=== PATIENT | male | born 1950 | race African-American/Black ===

== ENCOUNTER 2016-07-17 09:32 | Outpatient (CLI) | payer MEDICARE, BC | END 2016-07-17 09:33 | disposition home or self-care (01) | DX: R53.83 Other fatigue (principal); G47.61 Periodic limb movement disorder | CPT/HCPCS: 99213; G0463 ==

== ENCOUNTER 2016-09-22 11:21 | Outpatient (CLI) | payer MEDICARE, BC | END 2016-09-22 11:22 | disposition critical access hospital (66) | DX: R41.82 Altered mental status, unspecified (principal); M25.512 Pain in left shoulder | CPT/HCPCS: A0425; A0429 ==

== ENCOUNTER 2016-09-22 11:38 | Emergency (ER) | payer MEDICARE, BC | END 2016-09-22 18:52 | disposition home or self-care (01) | DX: S42.212A Unspecified displaced fracture of surgical neck of left humerus, initial encounter for closed fracture (principal); W06.XXXA Fall from bed, initial encounter; Y92.013 Bedroom of single-family (private) house as the place of occurrence of the external cause; I10 Essential (primary) hypertension; E78.00 Pure hypercholesterolemia, unspecified; E11.9 Type 2 diabetes mellitus without complications; G47.30 Sleep apnea, unspecified; I25.10 Atherosclerotic heart disease of native coronary artery without angina pectoris; Z95.1 Presence of aortocoronary bypass graft; K21.9 Gastro-esophageal reflux disease without esophagitis; M79.7 Fibromyalgia; Z79.82 Long term (current) use of aspirin ==

== ENCOUNTER 2016-10-03 22:05 | Outpatient (CLI) | payer MEDICARE, BC | END 2016-10-03 22:06 | disposition critical access hospital (66) | DX: R07.81 Pleurodynia (principal); M79.602 Pain in left arm; Z91.81 History of falling | CPT/HCPCS: A0425; A0429 ==

== ENCOUNTER 2016-10-03 22:20 | Emergency (ER) | payer MEDICARE, BC ==
--- NOTE | 2016-10-03 22:36 | ED Physician Documentation ---
PD HPI Fall - Stated complaint Stated Complaint: GLF - Chief complaint Chief Complaint: General - History obtained from History obtained from: Patient - History of Present Illness Mechanism of injury: Lost balance Fall distance: Standing position Timing - onset: Today (this afternoon) Injury(ies) location: Chest (right low chest wall) Pain level now: 6 Quality of pain: Pain Associated symptoms: No: LOC, Neck pain Symptoms improve with: Rest Worsens with: Movement, Palpation Recently seen: Emergency Dept - Additional information Additional information: recently evaluated in this ED as well as at another ED for fall and multiple injury sites, with xrays and CTs revealing LUE fractures (humerus, radius). Patient says he fell again earlier today, c/o excerbation of the pain he has been having in his left shoulder and elbow, and his chief complaint is pain right anterolateral lower ribs Review of Systems Cardiac: denies: Chest pain / pressure (chest wall (rib) pain, but not chest pain per se) Respiratory: denies: Dyspnea GI: reports: Reviewed and negative. denies: Abdominal Pain PD PAST MEDICAL HISTORY - Past Medical History Cardiovascular: Hypertension, High cholesterol Respiratory: Sleep apnea Endocrine/Autoimmune: Type 2 diabetes GI: GERD : Incontinence Psych: Depression, Anxiety Musculoskeletal: Fibromyalgia - Past Surgical History Past Surgical History: Yes Ortho: Carpal Tunnel surgery Cardiovascular: CABG - Present Medications Home Medications: Ambulatory Orders Medication Instructions Recorded Confirmed Acetaminophen/Cod 300/30 [Tylenol 1 tab PO QID PRN 02/08/14 06/27/15 #3] Aspirin [Tony Chewable] 81 mg PO DAILY 02/08/14 06/27/15 Folic Acid 1 mg PO DAILY 02/08/14 06/27/15 Methotrexate Sodium [Methotrexate] 4 mg PO DAILY 02/08/14 06/27/15 Tamsulosin [Flomax] 0.4 mg PO DAILY 02/08/14 06/27/15 Morphine Sulfate [Morphine Sulfate 15 mg PO [id number] 07/29/14 06/27/15 ER] Ondansetron Odt [Zofran] 4 mg TL Q6H PRN #10 tablet 12/18/14 06/27/15 Amoxicillin/Potassium Clav 1 each PO BID #14 tablet 06/27/15 [Augmentin 875-125 Tablet] Atorvastatin Calcium 80 mg PO DAILY 01/20/16 01/20/16 Bupropion HCl 100 mg PO BID 06/27/15 06/27/15 Lisinopril 10 mg PO DAILY 06/27/15 06/27/15 Methocarbamol [Robaxin] 500 mg PO Q6HR 06/27/15 06/27/15 Pantoprazole [Protonix] 40 mg PO DAILY 06/27/15 06/27/15 Trospium Chloride [Trospium 60 mg PO DAILY 06/27/15 06/27/15 Chloride ER] Venlafaxine HCl [Venlafaxine HCl 150 mg PO DAILY 06/27/15 06/27/15 ER] - Allergies Allergies/Adverse Reactions: Allergies Allergy/AdvReac Type Severity Reaction Status Date / Time amitriptyline HCl * Allergy Intermediate Cramps Verified 06/27/15 00:12 [From Elavil] hydrochlorothiazide Allergy Intermediate Cramps Verified 06/27/15 00:12 - Social History Does the pt smoke?: No Smoking Status: Never smoker Does the pt drink ETOH?: No Does the pt have substance abuse?: No - Immunizations Immunizations are current?: Yes - POLST Patient has POLST: No PD ED PE NORMAL - Vitals Vital signs reviewed: Yes - General General: Alert and oriented X 3, No acute distress, Well developed/nourished - Cardiac Cardiac: RRR, No murmur - Respiratory Respiratory: No respiratory distress, Clear bilaterally - Abdomen Abdomen: Soft, Non tender - Derm Derm: Normal color, Warm and dry - Extremities Extremities: No edema - Free text exam Free text exam: right lower anterolateral chest wall pain to palpation without crepitus PD ED PE EXPANDED - Extremities Extremities: Other (LUE sling in place) Results - Vitals Vitals: Vital Signs - 24 hr 10/03/16 10/04/16 10/04/16 22:23 01:07 01:49 Temperature 36.3 C L Heart Rate 68 71 76 Respiratory 16 19 18 Rate Blood Pressure 199/101 H 198/110 H 184/98 H O2 Saturation 97 98 98 Oxygen O2 Source [Without Activity] Room air O2 Source Room air - Rads (name of study) chest with right ribs xrays Radiology: Prelim report reviewed, See rad report PD MEDICAL DECISION MAKING - ED course Complexity details: reviewed old records, reviewed results, re-evaluated patient , considered differential, d/w patient Departure - Departure Disposition: Home, Self Care Clinical Impression: Fall Qualifiers: Encounter type: initial encounter Qualified Code(s): W19.XXXA - Unspecified fall, initial encounter Chest wall contusion Qualifiers: Encounter type: initial encounter Laterality: right Qualified Code(s): S20.211A - Contusion of right front wall of thorax, initial encounter Condition: Good Instructions: ED Contusion Rib Follow-Up: Jairo Blandon MD [Primary Care Provider] - Discharge Date/Time: 10/04/16 01:49
[2016-10-03] MEDS ORDERED: oxyCODONE 5 MG TABLET PO STA (23:04)
[2016-10-03] MEDS ORDERED: oxyCODONE 5 MG TABLET ONE (23:07)
--- NOTE | 2016-10-04 00:33 | XRAY Preliminary Report ---
Exam: XR Ribs w/PA Chest RT IMPRESSION: Normal rib radiography. [facility] SITE ID: [id number]
--- NOTE | 2016-10-04 00:35 | XRAY Report ---
EXAM: RIGHT RIB RADIOGRAPHY EXAM DATE: 10/03/2016 11:17 PM. CLINICAL HISTORY: Fall, right chest wall pain. COMPARISON: None. TECHNIQUE: 2 views. FINDINGS: Bones: Normal. No fracture or bone lesion. Lungs: No focal opacities evident. No pneumothorax or pleural effusions. Mediastinum: Heart and cardiomediastinal contours are unremarkable. Other: Status post median sternotomy. IMPRESSION: Normal rib radiography. [facility] Referring Provider Line: [phone] SITE ID: [id number]
[2016-10-04 01:51] VITALS: BP 184/98
== END 2016-10-04 01:49 | disposition home or self-care (01) ==
LOC: EDUNIT# → SUPCPDRO 22:20 → ED 22:20
DX: S20.211A Contusion of right front wall of thorax, initial encounter (principal); W01.0XXA Fall on same level from slipping, tripping and stumbling without subsequent striking against object, initial encounter; I10 Essential (primary) hypertension; E78.00 Pure hypercholesterolemia, unspecified; G47.30 Sleep apnea, unspecified; E11.9 Type 2 diabetes mellitus without complications; K21.9 Gastro-esophageal reflux disease without esophagitis; M79.7 Fibromyalgia; Z79.82 Long term (current) use of aspirin
CPT/HCPCS: 99283

== ENCOUNTER 2016-10-08 21:52 | Outpatient (CLI) | payer MEDICARE, BC | END 2016-10-08 21:53 | disposition critical access hospital (66) | DX: R41.82 Altered mental status, unspecified (principal); R03.0 Elevated blood-pressure reading, without diagnosis of hypertension | CPT/HCPCS: A0425; A0429 ==

== ENCOUNTER 2016-10-08 22:06 | Emergency (ER) | payer MEDICARE, BC ==
[2016-10-08] MEDS ORDERED: SODIUM CHLORIDE 0.9% 1,000 ML IV ONE (22:12)
[2016-10-08] MEDS ORDERED: levoFLOXacin 250 MG TABLET PO STA (23:43)
[2016-10-08] MEDS ORDERED: levoFLOXacin 250 MG TABLET PO ONE (23:44)
== END 2016-10-09 01:13 | disposition home or self-care (01) ==
DX: N39.0 Urinary tract infection, site not specified (principal); N40.0 Benign prostatic hyperplasia without lower urinary tract symptoms; I10 Essential (primary) hypertension; E78.00 Pure hypercholesterolemia, unspecified; G47.30 Sleep apnea, unspecified; E11.9 Type 2 diabetes mellitus without complications; K21.9 Gastro-esophageal reflux disease without esophagitis; M79.7 Fibromyalgia; Z79.82 Long term (current) use of aspirin
CPT/HCPCS: 80053; 81001; 83690; 83735; 83880; 84100; 85025; 87086; 99284; A9270

== ENCOUNTER 2016-10-09 00:58 | Outpatient (CLI) | payer MEDICARE, BC | END 2016-10-09 00:59 | disposition home or self-care (01) | DX: R53.1 Weakness (principal) | CPT/HCPCS: A0425; A0428 ==

== ENCOUNTER 2016-11-01 12:05 | Outpatient (CLI) | payer MEDICARE, BC | END 2016-11-01 12:06 | disposition critical access hospital (66) | LOC: EMS 12:05 | PROVIDERS: ATTEND Surgery | DX: R11.2 Nausea with vomiting, unspecified (principal); K59.00 Constipation, unspecified | CPT/HCPCS: A0425; A0427 ==

== ENCOUNTER 2016-11-01 12:23 | Inpatient (IN) | payer MEDICARE, BC ==
[2016-11-01] MEDS ORDERED: SODIUM CHLORIDE 0.9% 1,000 ML IV ONE ×2 (13:35→14:13)
[2016-11-01] MEDS ORDERED: SODIUM CHLORIDE FLUSH 0.9% 10 ML SYRINGE IVP PRN (17:52)
[2016-11-01] MEDS: SODIUM CHLORIDE 0.9% 1,000 ML IV SCH (19:05)
[2016-11-01] MEDS: PANTOPRAZOLE 40 MG TABLET PO SCH (19:06)
[2016-11-01] MEDS ORDERED: hydrALAZINE 10 MG TABLET PO SCH ×2 (19:20→21:00)
[2016-11-01] MEDS: SODIUM CHLORIDE FLUSH 0.9% 10 ML SYRINGE IVP SCH (20:17)
[2016-11-01] MEDS: POLYETHYLENE GLYCOL 3350 17 GM PACKET PO SCH (20:21)
[2016-11-01] MEDS: TAMSULOSIN 0.4 MG CAPSULE PO SCH (20:22)
[2016-11-01] MEDS: ONDANSETRON 4 MG/2 ML VIAL IVP PRN (21:36)
[2016-11-01] MEDS: oxyCODONE 5 MG TABLET PO PRN (23:47)
[2016-11-02] MEDS: hydrALAZINE 25 MG TABLET PO SCH ×5 (00:27→20:40)
[2016-11-02] MEDS: ACETAMINOPHEN 325 MG TABLET PO PRN ×2 (02:33→15:39)
[2016-11-02] MEDS: SODIUM CHLORIDE 0.9% 1,000 ML IV SCH ×2 (04:20→16:03)
[2016-11-02] MEDS: SODIUM CHLORIDE FLUSH 0.9% 10 ML SYRINGE IVP SCH ×3 (06:08→20:36)
[2016-11-02] MEDS: oxyCODONE 5 MG TABLET PO PRN (06:09)
[2016-11-02] MEDS: PANTOPRAZOLE 40 MG TABLET PO SCH (06:09)
[2016-11-02] MEDS: POTASSIUM CHLORIDE 10 MEQ CAPSULE PO SCH ×4 (08:37→20:40)
[2016-11-02] MEDS: POLYETHYLENE GLYCOL 3350 17 GM PACKET PO SCH (08:37)
[2016-11-02] MEDS: VENLAFAXINE ER 75 MG CAPSULE PO SCH (08:37)
[2016-11-02] MEDS: FOLIC ACID 1 MG TABLET PO SCH (08:37)
[2016-11-02] MEDS: DOCUSATE SODIUM 250 MG CAPSULE PO SCH (08:38)
[2016-11-02] MEDS: SENNA 8.6 MG TABLET PO SCH (08:38)
[2016-11-02] MEDS ORDERED: POLYETHYLENE GLYCOL 3350 17 GM PACKET PO SCH (09:00)
[2016-11-02] MEDS: TAMSULOSIN 0.4 MG CAPSULE PO SCH (20:39)
[2016-11-02] MEDS: ONDANSETRON 4 MG/2 ML VIAL IVP PRN (22:54)
[2016-11-03] MEDS: amLODIPine 5 MG TABLET PO SCH ×2 (01:23→08:31)
[2016-11-03] MEDS: ACETAMINOPHEN 325 MG TABLET PO PRN ×2 (01:23→06:52)
[2016-11-03] MEDS: SODIUM CHLORIDE 0.9% 1,000 ML IV SCH ×2 (04:40→21:38)
[2016-11-03] MEDS: PANTOPRAZOLE 40 MG TABLET PO SCH (06:52)
[2016-11-03] MEDS: SODIUM CHLORIDE FLUSH 0.9% 10 ML SYRINGE IVP SCH ×3 (06:57→20:48)
[2016-11-03] MEDS: POTASSIUM CHLORIDE 10 MEQ CAPSULE PO SCH ×4 (08:30→20:47)
[2016-11-03] MEDS: POLYETHYLENE GLYCOL 3350 17 GM PACKET PO SCH (08:30)
[2016-11-03] MEDS: FOLIC ACID 1 MG TABLET PO SCH (08:31)
[2016-11-03] MEDS: SENNA 8.6 MG TABLET PO SCH (08:31)
[2016-11-03] MEDS: hydrALAZINE 25 MG TABLET PO SCH ×4 (08:31→20:47)
[2016-11-03] MEDS: VENLAFAXINE ER 75 MG CAPSULE PO SCH (08:31)
[2016-11-03] MEDS: DOCUSATE SODIUM 250 MG CAPSULE PO SCH (08:31)
[2016-11-03] MEDS: TAMSULOSIN 0.4 MG CAPSULE PO SCH (20:47)
[2016-11-03] MEDS: ONDANSETRON 4 MG/2 ML VIAL IVP PRN (22:22)
[2016-11-03] MEDS: oxyCODONE 5 MG TABLET PO PRN (23:39)
[2016-11-04] MEDS: SODIUM CHLORIDE FLUSH 0.9% 10 ML SYRINGE IVP SCH ×2 (05:54→14:33)
[2016-11-04] MEDS: PANTOPRAZOLE 40 MG TABLET PO SCH (06:16)
[2016-11-04] MEDS: SODIUM CHLORIDE 0.9% 1,000 ML IV SCH (09:05)
[2016-11-04] MEDS: SENNA 8.6 MG TABLET PO SCH (09:06)
[2016-11-04] MEDS: DOCUSATE SODIUM 250 MG CAPSULE PO SCH (09:06)
[2016-11-04] MEDS: amLODIPine 5 MG TABLET PO SCH (09:06)
[2016-11-04] MEDS: POTASSIUM CHLORIDE 10 MEQ CAPSULE PO SCH ×2 (09:06→14:26)
[2016-11-04] MEDS: VENLAFAXINE ER 75 MG CAPSULE PO SCH (09:06)
[2016-11-04] MEDS: hydrALAZINE 25 MG TABLET PO SCH ×2 (09:06→13:08)
[2016-11-04] MEDS: FOLIC ACID 1 MG TABLET PO SCH (09:06)
[2016-11-04] MEDS: POLYETHYLENE GLYCOL 3350 17 GM PACKET PO SCH (09:07)
[2016-11-04] MEDS: oxyCODONE 5 MG TABLET PO PRN (16:21)
== END 2016-11-04 16:25 | disposition home or self-care (01) | DRG 684 ==
DX: N17.9 Acute kidney failure, unspecified (principal); N13.30 Unspecified hydronephrosis; G47.30 Sleep apnea, unspecified; C61 Malignant neoplasm of prostate; I10 Essential (primary) hypertension; Z91.14 Patient's other noncompliance with medication regimen; E87.6 Hypokalemia; R33.8 Other retention of urine; R63.0 Anorexia; Z68.28 Body mass index [BMI] 28.0-28.9, adult; E11.9 Type 2 diabetes mellitus without complications; K21.9 Gastro-esophageal reflux disease without esophagitis; R74.8 Abnormal levels of other serum enzymes; I25.10 Atherosclerotic heart disease of native coronary artery without angina pectoris; R32 Unspecified urinary incontinence; M79.7 Fibromyalgia; F41.9 Anxiety disorder, unspecified; F32.9 Major depressive disorder, single episode, unspecified; Z95.1 Presence of aortocoronary bypass graft; Z79.82 Long term (current) use of aspirin; Z79.899 Other long term (current) drug therapy

== ENCOUNTER 2016-11-18 11:16 | Outpatient (CLI) | payer MEDICARE, BC | END 2016-11-18 11:17 | disposition short-term general hospital (02) | LOC: EMS 11:16 | PROVIDERS: ATTEND Surgery | DX: K59.00 Constipation, unspecified (principal) | CPT/HCPCS: A0425; A0429; A0888 ==

== ENCOUNTER 2016-12-05 01:53 | Outpatient (CLI) | payer MEDICARE, BC | END 2016-12-05 01:54 | disposition critical access hospital (66) | LOC: EMS 01:53 | PROVIDERS: ATTEND Surgery | DX: R39.89 Other symptoms and signs involving the genitourinary system (principal) | CPT/HCPCS: A0425; A0429 ==

== ENCOUNTER 2016-12-05 02:12 | Emergency (ER) | payer MEDICARE, BC ==
--- NOTE | 2016-12-05 02:21 | ED Physician Documentation ---
PD HPI MALE - Stated complaint Stated Complaint: URINARY RETENTION - Chief complaint Chief Complaint: Abd Pain - History obtained from History obtained from: Patient, EMS - History of Present Illness Timing - onset: Today Timing - duration: Hours (6) Timing - details: Gradual onset Pain level max: 0 Pain level now: 0 Associated symptoms: Unable to urinate. No: Dysuria, Urinary frequency, Hematuria, Discharge, Genital sore / lesion, Testiclar pain, Scrotal swelling, Abdominal pain PD HPI MALE CONTRIB FACTORS: Indwelling catheter (catheter removed at 6pm and hasn't been able to urinate since that time. Sent here to have his cevallos replaced. Has prostate CA.) Recently seen: Not recently seen Review of Systems Constitutional: denies: Fever, Chills Respiratory: denies: Cough GI: denies: Abdominal Pain, Nausea, Vomiting, Diarrhea Musculoskeletal: denies: Neck pain, Back pain Neurologic: denies: Headache PD PAST MEDICAL HISTORY - Past Medical History Cardiovascular: Hypertension Respiratory: Sleep apnea Neuro: None Endocrine/Autoimmune: Type 2 diabetes GI: GERD : Incontinence HEENT: Chronic vision loss Psych: Depression, Anxiety Musculoskeletal: Fibromyalgia Derm: None - Past Surgical History Past Surgical History: Yes Ortho: Carpal Tunnel surgery Cardiovascular: CABG - Present Medications Home Medications: Ambulatory Orders Medication Instructions Recorded Confirmed Aspirin [Tony Chewable Aspirin] 81 mg PO DAILY 02/08/14 12/05/16 Folic Acid 1 mg PO DAILY 02/08/14 12/05/16 Methotrexate Sodium [Methotrexate] 10 mg PO .WEEKLY 02/08/14 12/05/16 Tamsulosin [Flomax] 0.8 mg PO QPM 02/08/14 12/05/16 Atorvastatin Calcium 80 mg PO QPM 06/27/15 12/05/16 Bupropion HCl 100 mg PO BID 06/27/15 12/05/16 Lisinopril 10 mg PO DAILY 06/27/15 12/05/16 Methocarbamol [Robaxin] 500 mg PO Q6HR PRN 06/27/15 12/05/16 Pantoprazole [Protonix] 40 mg PO QDAC 06/27/15 12/05/16 Trospium Chloride [Trospium 60 mg PO DAILY 06/27/15 12/05/16 Chloride ER] Venlafaxine HCl [Venlafaxine HCl 150 mg PO DAILY 06/27/15 12/05/16 ER] Ondansetron HCl [Zofran] 4 mg PO Q6H PRN 11/01/16 12/05/16 Venlafaxine HCl [Venlafaxine HCl 75 mg PO DAILY 11/01/16 12/05/16 ER] Ciprofloxacin [Cipro] 250 mg PO Q12H #30 tablet 11/04/16 12/05/16 amLODIPine [Norvasc] 5 mg PO DAILY #30 tablet 11/04/16 12/05/16 hydrALAZINE [Apresoline] 25 mg PO TID #90 tablet 11/04/16 12/05/16 - Allergies Allergies/Adverse Reactions: Allergies Allergy/AdvReac Type Severity Reaction Status Date / Time amitriptyline HCl * Allergy Intermediate Cramps Verified 10/08/16 22:13 [From Elavil] hydrochlorothiazide Allergy Intermediate Cramps Verified 10/08/16 22:13 - Social History Does the pt smoke?: No Smoking Status: Never smoker Does the pt drink ETOH?: No Does the pt have substance abuse?: No - Immunizations Immunizations are current?: Yes - POLST Patient has POLST: No PD ED PE NORMAL - Vitals Vital signs reviewed: Yes - General General: Alert and oriented X 3, No acute distress - HEENT HEENT: Moist mucous membranes - Neck Neck: Supple, no meningeal sign - Cardiac Cardiac: RRR - Respiratory Respiratory: No respiratory distress, Clear bilaterally - Abdomen Abdomen: Soft, Non tender, Non distended - Derm Derm: Warm and dry - Neuro Neuro: Alert and oriented X 3 - Psych Psych: Normal mood, Normal affect Results - Vitals Vitals: Vital Signs - 24 hr 12/05/16 12/05/16 02:17 02:57 Temperature 36.7 C Heart Rate 75 71 Respiratory 17 18 Rate Blood Pressure 114/67 116/69 O2 Saturation 100 100 Oxygen O2 Source [Without Activity] Room air O2 Source Room air PD MEDICAL DECISION MAKING - ED course Complexity details: considered differential, d/w patient ED course: Patient sent to the emergency department to have his catheter replaced. The Cevallos catheter was inserted, bladder drained and catheter left in place. We will have him follow-up with his doctor. Patient counseled regarding signs and symptoms for which I believe and urgent re-evaluation would be necessary. Patient with good understanding of and agreement to plan and is comfortable going home at this time This document was made in part using voice recognition software. While efforts are made to proofread this document, sound alike and grammatical errors may occur. Departure - Departure Disposition: 01 Home, Self Care Clinical Impression: Urinary retention Condition: Good Instructions: ED Catheter Care Cevallos Follow-Up: your,doctor in 3 days [Other] Comments: Return if you worsen. Discharge Date/Time: 12/05/16 02:58
[2016-12-05 02:58] VITALS: BP 116/69
== END 2016-12-05 02:58 | disposition home or self-care (01) ==
LOC: EDUNIT# → ED 02:12
DX: R33.9 Retention of urine, unspecified (principal); I10 Essential (primary) hypertension; E11.9 Type 2 diabetes mellitus without complications; G47.30 Sleep apnea, unspecified; Z79.82 Long term (current) use of aspirin
CPT/HCPCS: 51702; 99283

== ENCOUNTER 2016-12-25 11:47 | Outpatient (CLI) | payer MEDICARE, BC | END 2016-12-25 11:48 | disposition critical access hospital (66) | LOC: EMS 11:47 | PROVIDERS: ATTEND Surgery | DX: R07.9 Chest pain, unspecified (principal) | CPT/HCPCS: A0425; A0429 ==

== ENCOUNTER 2016-12-25 12:01 | Emergency (ER) | payer MEDICARE, BC ==
[2016-12-25] MEDS ORDERED: MORPHINE 2 MG/ML SYRINGE IVP STA (12:17)
--- NOTE | 2016-12-25 12:21 | ED Physician Documentation ---
History of Present Illness - Stated complaint Stated Complaint: chest pain - Additonal information Additional information: hx from pt BIBA for CP X 2 hr L sided rad to l arm as 02/15now 12/15 after asa and nitro paste hx same freq but this episode lasted longer than normal has seen PMD for same and states dx chest wall pain hx CABG thinks his last stress test was 6 m ago and was fine also has nausea on a daily basis in the AM no dyspnea no fever no cough no leg swelling Review of Systems Constitutional: denies: Fever, Chills Throat: denies: Sore throat Cardiac: reports: Chest pain / pressure Respiratory: denies: Dyspnea GI: reports: Nausea. denies: Abdominal Pain Musculoskeletal: denies: Extremity pain Neurologic: denies: Generalized weakness Endocrine: denies: Easy bruising / bleeding Immunocompromised: denies: Immunocompromised PD PAST MEDICAL HISTORY - Present Medications Home Medications: Ambulatory Orders Medication Instructions Recorded Confirmed Aspirin [Tony Chewable Aspirin] 81 mg PO DAILY 02/08/14 12/05/16 Folic Acid 1 mg PO DAILY 02/08/14 12/05/16 Methotrexate Sodium [Methotrexate] 10 mg PO .WEEKLY 02/08/14 12/05/16 Tamsulosin [Flomax] 0.8 mg PO QPM 02/08/14 12/05/16 Atorvastatin Calcium 80 mg PO QPM 06/27/15 12/05/16 Bupropion HCl 100 mg PO BID 06/27/15 12/05/16 Lisinopril 10 mg PO DAILY 06/27/15 12/05/16 Methocarbamol [Robaxin] 500 mg PO Q6HR PRN 06/27/15 12/05/16 Pantoprazole [Protonix] 40 mg PO QDAC 06/27/15 12/05/16 Trospium Chloride [Trospium 60 mg PO DAILY 06/27/15 12/05/16 Chloride ER] Venlafaxine HCl [Venlafaxine HCl 150 mg PO DAILY 06/27/15 12/05/16 ER] Ondansetron HCl [Zofran] 4 mg PO Q6H PRN 11/01/16 12/05/16 Venlafaxine HCl [Venlafaxine HCl 75 mg PO DAILY 11/01/16 12/05/16 ER] Ciprofloxacin [Cipro] 250 mg PO Q12H #30 tablet 11/04/16 12/05/16 amLODIPine [Norvasc] 5 mg PO DAILY #30 tablet 11/04/16 12/05/16 hydrALAZINE [Apresoline] 25 mg PO TID #90 tablet 11/04/16 12/05/16 - Allergies Allergies/Adverse Reactions: Allergies Allergy/AdvReac Type Severity Reaction Status Date / Time amitriptyline HCl * Allergy Intermediate Cramps Verified 10/08/16 22:13 [From Elavil] hydrochlorothiazide Allergy Intermediate Cramps Verified 10/08/16 22:13 PD ED PE NORMAL - Vitals Vital signs reviewed: Yes - General General: Alert and oriented X 3 - HEENT HEENT: PERRL - Neck Neck: Supple, no meningeal sign - Cardiac Cardiac: RRR, Other (some TTP left chest, keeps rubbing it) - Respiratory Respiratory: No respiratory distress, Clear bilaterally - Abdomen Abdomen: Soft, Non tender - Derm Derm: Normal color - Extremities Extremities: No deformity, No edema, Other (urine leg bag) - Neuro Neuro: Alert and oriented X 3 Results - Vitals Vitals: Vital Signs - 24 hr 12/25/16 12/25/16 12/25/16 12:05 13:23 13:53 Temperature 36.5 C 36.8 C Heart Rate 81 77 78 Respiratory 14 19 18 Rate Blood Pressure 137/92 H 104/90 H 138/82 H O2 Saturation 97 98 98 12/25/16 15:08 Temperature Heart Rate 62 Respiratory 18 Rate Blood Pressure 126/70 O2 Saturation 93 Oxygen O2 Source [] Room air O2 Source Room air - EKG (time done) 1212 Rate: Rate (enter#) (74) Rhythm: NSR [place]: Normal Intervals: Normal [place] QRS: Normal Ischemia: Non specific changes - Labs Labs: Laboratory Tests 12/25/16 12/25/16 12/25/16 12:45 12:45 12:45 WBC 5.4 RBC 3.72 L Hgb 9.8 L Hct 30.3 L MCV 81.4 MCH 26.3 L MCHC 32.3 RDW 17.5 H Plt Count 267 MPV 7.3 L Neut # 3.7 Lymph # 1.0 L [place] # 0.5 Eos # 0.2 Baso # 0.1 Absolute Nucleated RBC 0.00 Nucleated RBCs 0.0 Sodium 138 Potassium 3.8 Chloride 103 Carbon Dioxide 29 Anion Gap 6.0 BUN 17 Creatinine 1.4 H Estimated GFR (MDRD) 61 L Glucose 73 Calcium 9.5 Total Bilirubin 0.4 AST 17 ALT 19 Alkaline Phosphatase 115 Troponin I < 0.04 Total Protein 7.2 Albumin 3.7 Globulin 3.5 Albumin/Globulin Ratio 1.1 Lipase 20 L 12/25/16 15:50 WBC RBC Hgb Hct MCV MCH MCHC RDW Plt Count MPV Neut # Lymph # [place] # Eos # Baso # Absolute Nucleated RBC Nucleated RBCs Sodium Potassium Chloride Carbon Dioxide Anion Gap BUN Creatinine Estimated GFR (MDRD) Glucose Calcium Total Bilirubin AST ALT Alkaline Phosphatase Troponin I < 0.04 Total Protein Albumin Globulin Albumin/Globulin Ratio Lipase - Rads (name of study) CXR Radiology: See rad report (NACPD s/p CABG, abn cardiac sillhouette is unchanged , aortic knowb sharp and clear) PD MEDICAL DECISION MAKING - ED course ED course: pt states anemia is not new - he thinks it is due to iron def but also says it has not been worked up Departure - Departure Disposition: Home, Self Care Clinical Impression: Chest pain Qualifiers: Chest pain type: unspecified Qualified Code(s): R07.9 - Chest pain, unspecified Anemia Qualifiers: Anemia type: unspecified type Qualified Code(s): D64.9 - Anemia, unspecified Instructions: ED Chest Pain Atypical Unkn Cause Follow-Up: Jairo Blandon MD [Primary Care Provider] - Comments: Your EKG and blood tests for your heart were fine - it does not seem this episode of chest pain was due to a heart attack Also your xray does not suggest an aortic aneurysm or tear And your exam does not suggest a blood clot in your lung I am not sure what did cause the pain - your seem tender to palpate the chest so perhaps it is muckuloskeletal pain Given the reassuring cardiac work up i think it is safe for you to go home and follow up with your PMD for a recheck tomorrow or Thursday Also I noticed today that you are anemic - it is not severe and you do not need a transfusion but it needs further work up which you PMD can do for you. We have given you some stoool sample cards to see if you are losing blood internally - please use the wooden sticks to place a small amount of stool on the sample area of the card - three cards three different BMs - and take the cards in the plastic bag to your follow up appointment Also please have your PMD recheck your blood pressure - it was high today
[2016-12-25] MEDS ORDERED: MORPHINE 2 MG/ML SYRINGE ONE (12:25)
--- NOTE | 2016-12-25 13:02 | XRAY Preliminary Report ---
Exam: XR Chest 1 View IMPRESSION: 1. No acute disease in the chest. 2. Status post CABG. [facility] SITE ID: [id number]
--- NOTE | 2016-12-25 13:05 | XRAY Report ---
EXAM: CHEST RADIOGRAPHY EXAM DATE: 12/25/2016 12:32 PM. CLINICAL HISTORY: Chest pain. COMPARISON: None. TECHNIQUE: 1 view. FINDINGS: Lungs/Pleura: No focal opacities evident. No pleural effusion. No pneumothorax. Mediastinum: Heart size is upper normal. Aortic atherosclerosis. Other: Changes are seen from median sternotomy and CABG. IMPRESSION: 1. No acute disease in the chest. 2. Status post CABG. [facility] Referring Provider Line: [phone] SITE ID: [id number]
[2016-12-25 13:08] LABS: BASOPHILS # (AUTO) 0.1 10^3/uL (0.0-0.1); BASOPHILS % (AUTO) 1.2 %; EOSINOPHILS # (AUTO) 0.2 10^3/uL (0.0-0.7); EOSINOPHILS % (AUTO) 2.9 %; HCT - HEMATOCRIT 30.3 % (42.0-52.0); HGB - HEMOGLOBIN 9.8 g/dL (14.0-18.0); LYMPHOCYTES % (AUTO) 18.1 %; MEAN CORPUSCULAR HEMOGLOBIN 26.3 pg (27.0-31.0); MEAN CORPUSCULAR HGB CONC 32.3 g/dL (32.0-36.0); MEAN CORPUSCULAR VOLUME 81.4 fL (80.0-94.0); MEAN PLATELET VOLUME 7.3 fL (7.4-11.4); MONOCYTES # (AUTO) 0.5 10^3/uL (0.0-1.0); MONOCYTES % (AUTO) 8.5 %; NEUTROPHILS # (AUTO) 3.7 10^3/uL (1.5-6.6); NEUTROPHILS % (AUTO) 69.3 %; RED BLOOD COUNT 3.72 10^6/uL (4.70-6.10); RED CELL DISTRIBUTION WIDTH 17.5 % (12.0-15.0); UNCORRECTED WHITE BLOOD COUNT 5.4 x10^3/uL; WHITE BLOOD COUNT 5.4 x10^3/uL (4.8-10.8)
[2016-12-25 13:16] LABS: ALBUMIN/GLOBULIN RATIO 1.1 (1.0-2.2); BILIRUBIN,TOTAL 0.4 mg/dL (0.2-1.0); CALCIUM 9.5 mg/dL (8.5-10.3); CREATININE 1.4 mg/dL (0.6-1.2); POTASSIUM 3.8 mmol/L (3.5-5.0); TOTAL PROTEIN 7.2 g/dL (6.7-8.2)
[2016-12-25] MEDS ORDERED: LIDOCAINE PATCH 5% TOP STA (14:07)
[2016-12-25] MEDS ORDERED: LIDOCAINE PATCH 5% TOP ONE (14:17)
[2016-12-25 16:44] VITALS: BP 152/89
== END 2016-12-25 17:02 | disposition home or self-care (01) ==
LOC: MERGE 12:01 → SUPCPDRO 12:01 → ED 12:01
DX: R07.9 Chest pain, unspecified (principal); D64.9 Anemia, unspecified; I25.10 Atherosclerotic heart disease of native coronary artery without angina pectoris; Z95.1 Presence of aortocoronary bypass graft; Z79.82 Long term (current) use of aspirin
CPT/HCPCS: 36415; 71010; 80053; 83690; 84484; 85025; 93005; 99284

== ENCOUNTER 2016-12-25 17:27 | Emergency (ER) | payer MEDICARE, BC ==
[2016-12-25 17:47] VITALS: BP 118/78
--- NOTE | 2016-12-25 20:17 | ED Physician Documentation ---
History of Present Illness - Stated complaint Stated Complaint: VOMITING - Chief complaint Chief Complaint: Abd Pain - History obtained from History obtained from: Patient - History of Present Illness Timing: Today, How many hours ago (5-6) Pain level now: 8 Improved by: no ameliorating factors Worsened by: no exacerbating factors - Additonal information Additional information: T+R few hours ago after long ED stay for chest pain work-up, including 2 sets of cardiac enzymes, discharged after unremarkable results. Just as he was leaving the ED, he had bifrontal headache, abdominal pain, nausea, and emesis, and thus he checked back in. Review of Systems Constitutional: denies: Fever, Chills, Sweats Cardiac: denies: Chest pain / pressure (resolved) Respiratory: reports: Reviewed and negative GI: reports: Abdominal Pain, Nausea, Vomiting. denies: Constipation, Diarrhea : reports: Other. denies: Dysuria, Frequency PD PAST MEDICAL HISTORY - Past Medical History Cardiovascular: High cholesterol, Hypertension Respiratory: Sleep apnea Neuro: None Endocrine/Autoimmune: Type 2 diabetes GI: GERD : Incontinence HEENT: Chronic vision loss Psych: Depression, Anxiety Musculoskeletal: Fibromyalgia Derm: None - Past Surgical History Past Surgical History: Yes Ortho: Carpal Tunnel surgery Cardiovascular: CABG - Present Medications Home Medications: Ambulatory Orders Medication Instructions Recorded Confirmed Aspirin [Tony Chewable Aspirin] 81 mg PO DAILY 02/08/14 12/25/16 Folic Acid 1 mg PO DAILY 02/08/14 12/25/16 Methotrexate Sodium [Methotrexate] 10 mg PO .WEEKLY 02/08/14 12/25/16 Tamsulosin [Flomax] 0.8 mg PO QPM 02/08/14 12/25/16 Atorvastatin Calcium 80 mg PO QPM 06/27/15 12/25/16 Bupropion HCl 100 mg PO BID 06/27/15 12/25/16 Lisinopril 10 mg PO DAILY 06/27/15 12/25/16 Methocarbamol [Robaxin] 500 mg PO Q6HR PRN 06/27/15 12/25/16 Pantoprazole [Protonix] 40 mg PO QDAC 06/27/15 12/25/16 Trospium Chloride [Trospium 60 mg PO DAILY 06/27/15 12/25/16 Chloride ER] Venlafaxine HCl [Venlafaxine HCl 150 mg PO DAILY 06/27/15 12/25/16 ER] Ondansetron HCl [Zofran] 4 mg PO Q6H PRN 11/01/16 12/25/16 Venlafaxine HCl [Venlafaxine HCl 75 mg PO DAILY 11/01/16 12/25/16 ER] Ciprofloxacin [Cipro] 250 mg PO Q12H #30 tablet 11/04/16 12/25/16 amLODIPine [Norvasc] 5 mg PO DAILY #30 tablet 11/04/16 12/25/16 hydrALAZINE [Apresoline] 25 mg PO TID #90 tablet 11/04/16 12/25/16 Ondansetron Odt [Zofran] 4 mg TL Q6H PRN #10 tablet 12/25/16 - Allergies Allergies/Adverse Reactions: Allergies Allergy/AdvReac Type Severity Reaction Status Date / Time amitriptyline HCl * Allergy Intermediate Cramps Verified 12/25/16 17:46 [From Elavil] hydrochlorothiazide Allergy Intermediate Cramps Verified 12/25/16 17:46 - Social History Does the pt smoke?: No Smoking Status: Never smoker Does the pt drink ETOH?: No Does the pt have substance abuse?: No - Immunizations Immunizations are current?: Yes - POLST Patient has POLST: No PD ED PE NORMAL - Vitals Vital signs reviewed: Yes - General General: Alert and oriented X 3, No acute distress, Well developed/nourished - HEENT HEENT: Moist mucous membranes - Cardiac Cardiac: RRR, Other (2/6 JOSE limited to right 2nd ACS) - Respiratory Respiratory: No respiratory distress, Clear bilaterally - Abdomen Abdomen: Normal bowel sounds, Soft, Non tender, Non distended, Other (fullness right hypogastrium without tenderness or pulsations) - Derm Derm: Normal color, Warm and dry - Extremities Extremities: No edema Results - Vitals Vitals: Vital Signs - 24 hr 12/25/16 17:41 Temperature 36.1 C L Heart Rate 75 Respiratory 16 Rate Blood Pressure 118/78 O2 Saturation 96 Oxygen O2 Source [Without Activity] Room air O2 Source Room air - Labs Labs: Laboratory Tests 12/25/16 20:50 Urine Color YELLOW Urine Clarity CLEAR Urine pH 6.5 Ur Specific [place] 1.020 Urine Protein 100 H Urine Glucose (UA) NEGATIVE Urine Ketones NEGATIVE Urine Occult Blood MODERATE H Urine Nitrite NEGATIVE Urine Bilirubin NEGATIVE Urine Urobilinogen 0.2 (NORMAL) Ur Leukocyte Esterase TRACE H Urine RBC 11-25 H Urine WBC 6-10 H Ur Squamous Epith Cells NONE SEEN Urine Bacteria Rare Ur Microscopic Review INDICATED Urine Culture Comments INDICATED PD MEDICAL DECISION MAKING - ED course Complexity details: reviewed old records, re-evaluated patient, considered differential, d/w patient Departure - Departure Disposition: 01 Home, Self Care Clinical Impression: Headache, Vomiting Condition: Good Instructions: ED Cephalgia Unspecified, ED Vomiting Diarrhea Nonspecific Ad Follow-Up: Jairo Blandon MD [Primary Care Provider] - (Call in the morning to arrange for next available appointment) Prescriptions: Ondansetron Odt [Zofran] 4 mg TL Q6H PRN #10 tablet PRN Reason: Nausea / Vomiting Discharge Date/Time: 12/25/16 22:45
[2016-12-25] MEDS ORDERED: KETOROLAC 60 MG/2 ML VIAL IM STA (20:39)
[2016-12-25] MEDS ORDERED: ONDANSETRON ODT 4 MG TABLET TL STA ×2 (20:39→22:21)
[2016-12-25] MEDS ORDERED: ONDANSETRON ODT 4 MG TABLET ONE ×2 (20:42→22:23)
[2016-12-25] MEDS ORDERED: WATER FOR INJECTION,STERILE 10 ML ONE (20:42)
[2016-12-25] MEDS ORDERED: KETOROLAC 60 MG/2 ML VIAL ONE (20:42)
[2016-12-25 20:58] LABS: BILIRUBIN,URINE NEGATIVE (NEGATIVE); PH,URINE 6.5 PH (5.0-7.5)
[2016-12-25 21:02] LABS: UA w/ MICROSCOPIC CHARGE YES
[2016-12-25 21:13] LABS: UR CULTURE IF IND INDICATED
[2016-12-25] MEDS ORDERED: ONDANSETRON ODT 4 MG Prepack 2 TL STA (22:21)
[2016-12-25] MEDS ORDERED: ONDANSETRON ODT 4 MG Prepack 2 TL ONE (22:23)
== END 2016-12-25 22:45 | disposition home or self-care (01) ==
LOC: ED 17:27
DX: R51 Headache (principal); R11.2 Nausea with vomiting, unspecified; R07.9 Chest pain, unspecified; D64.9 Anemia, unspecified; I10 Essential (primary) hypertension; I25.10 Atherosclerotic heart disease of native coronary artery without angina pectoris; Z95.1 Presence of aortocoronary bypass graft; G47.30 Sleep apnea, unspecified; E11.9 Type 2 diabetes mellitus without complications; K21.9 Gastro-esophageal reflux disease without esophagitis; M79.7 Fibromyalgia; Z79.82 Long term (current) use of aspirin
CPT/HCPCS: 36415; 71010; 80053; 81001; 83690; 84484; 85025; 87086; 93005; 96372; 96374; 99283; 99284; A9270; Q0162; 81003

== ENCOUNTER 2017-01-14 11:21 | Outpatient (CLI) | payer MEDICARE, BC | END 2017-01-14 11:22 | disposition critical access hospital (66) | LOC: EMS 11:21 | PROVIDERS: ATTEND Surgery | DX: R39.89 Other symptoms and signs involving the genitourinary system (principal) | CPT/HCPCS: A0425; A0429 ==

== ENCOUNTER 2017-01-14 11:39 | Emergency (ER) | payer MEDICARE, BC ==
[2017-01-14 12:50] LABS: BILIRUBIN,URINE NEGATIVE (NEGATIVE); PH,URINE 7.5 PH (5.0-7.5)
[2017-01-14 12:51] LABS: UA w/ MICROSCOPIC CHARGE YES
[2017-01-14] MEDS ORDERED: HYDROmorphone 1 MG/ML SYRINGE IM STA ×2 (13:03→16:13)
[2017-01-14 13:06] LABS: UR CULTURE IF IND INDICATED
--- NOTE | 2017-01-14 13:11 | ED Physician Documentation ---
History of Present Illness - Stated complaint Stated Complaint: BLADDER PAIN - Chief complaint Chief Complaint: Abd Pain - History obtained from History obtained from: Patient - Additonal information Additional information: This patient is a pleasant 66-year-old male with a history of prostate cancer with a chronic indwelling Monson catheter. He presents with a complaint of right -sided groin pain starting this morning. The pain is spasmodic and comes and goes is not made better or worse by anything. He denies any fever or chills and has not had any nausea or vomiting. He complains of tenderness in the groin area and also tenderness in the penis. He denies any constipation or diarrhea. He says his Monson catheter is been functioning normally.. The patient does have a history of BPH, prostate cancer, dyslipidemia, depression, overactive bladder and hypertension. Review of systems: For pertinent positive and negatives in the review of systems please see the history of present illness, otherwise all other systems have been reviewed and are negative. Dragon disclaimer: Parts of this medical record were created using voice recognition technology. Because of the inherent limitations of this system, occasional same sounding word substitutions do occur and persist despite proofreading. Please read the document for context. Review of Systems GI: reports: Abdominal Pain : reports: Dysuria, Monson Problem Skin: reports: Rash, Lesions, Abrasion (s) PD PAST MEDICAL HISTORY - Past Medical History Cardiovascular: High cholesterol, Hypertension Respiratory: Sleep apnea Neuro: None Endocrine/Autoimmune: Type 2 diabetes GI: GERD : Incontinence HEENT: Chronic vision loss Psych: Depression, Anxiety Musculoskeletal: Fibromyalgia Derm: None - Past Surgical History Past Surgical History: Yes Ortho: Carpal Tunnel surgery Cardiovascular: CABG - Present Medications Home Medications: Ambulatory Orders Medication Instructions Recorded Confirmed Aspirin [Tony Chewable Aspirin] 81 mg PO DAILY 02/08/14 01/14/17 Folic Acid 1 mg PO DAILY 02/08/14 01/14/17 Methotrexate Sodium [Methotrexate] 10 mg PO .WEEKLY 02/08/14 01/14/17 Tamsulosin [Flomax] 0.8 mg PO QPM 02/08/14 01/14/17 Atorvastatin Calcium 80 mg PO QPM 06/27/15 01/14/17 Bupropion HCl 100 mg PO BID 06/27/15 01/14/17 Lisinopril 10 mg PO DAILY 06/27/15 01/14/17 Methocarbamol [Robaxin] 500 mg PO Q6HR PRN 06/27/15 01/14/17 Pantoprazole [Protonix] 40 mg PO QDAC 06/27/15 01/14/17 Trospium Chloride [Trospium 60 mg PO DAILY 06/27/15 01/14/17 Chloride ER] Venlafaxine HCl [Venlafaxine HCl 150 mg PO DAILY 06/27/15 01/14/17 ER] Ondansetron HCl [Zofran] 4 mg PO Q6H PRN 11/01/16 01/14/17 Venlafaxine HCl [Venlafaxine HCl 75 mg PO DAILY 11/01/16 01/14/17 ER] Ciprofloxacin [Cipro] 250 mg PO Q12H #30 tablet 11/04/16 01/14/17 amLODIPine [Norvasc] 5 mg PO DAILY #30 tablet 11/04/16 01/14/17 hydrALAZINE [Apresoline] 25 mg PO TID #90 tablet 11/04/16 01/14/17 Ondansetron Odt [Zofran] 4 mg TL Q6H PRN #10 tablet 12/25/16 01/14/17 Ciprofloxacin HCl [Cipro] 500 mg PO BID #10 tablet 01/14/17 oxyCODONE/ACET 5/325 [Percocet 5 1 each PO Q4-6H PRN #16 tablet 01/14/17 mg/325 mg] - Allergies Allergies/Adverse Reactions: Allergies Allergy/AdvReac Type Severity Reaction Status Date / Time amitriptyline HCl * Allergy Intermediate Cramps Verified 12/25/16 17:46 [From Elavil] hydrochlorothiazide Allergy Intermediate Cramps Verified 12/25/16 17:46 - Social History Does the pt smoke?: No Smoking Status: Never smoker Does the pt drink ETOH?: No Does the pt have substance abuse?: No - Immunizations Immunizations are current?: Yes - POLST Patient has POLST: No PD ED PE NORMAL - Vitals Vital signs reviewed: Yes - General General: Alert and oriented X 3, No acute distress, Well developed/nourished, Other (Appears to be a little on uncomfortable. He is rubbing his right groin area) - HEENT HEENT: Atraumatic - Neck Neck: Supple, no meningeal sign, No bony TTP - Cardiac Cardiac: RRR, No gallop - Respiratory Respiratory: No respiratory distress, Clear bilaterally - Abdomen Abdomen: Normal bowel sounds, Soft, Non tender, Non distended - Back Back: No CVA TTP - Derm Derm: Normal color, Warm and dry - Extremities Extremities: No deformity, No tenderness to palpate, Normal ROM s pain - Neuro Neuro: Alert and oriented X 3 Results - Vitals Vitals: Vital Signs - 24 hr 01/14/17 01/14/17 11:44 16:14 Temperature 36.8 C Heart Rate 90 84 Respiratory 17 20 Rate Blood Pressure 137/83 H 153/76 H O2 Saturation 100 96 Oxygen O2 Source [Without Activity] Room air O2 Source Room air - Labs Labs: Laboratory Tests 01/14/17 01/14/17 01/14/17 12:50 13:30 13:45 WBC 7.3 RBC 3.99 L Hgb 10.4 L Hct 32.5 L MCV 81.5 MCH 26.2 L MCHC 32.1 RDW 17.4 H Plt Count 252 MPV 7.1 L Neut # 5.1 Lymph # 1.2 L Porter # 0.7 Eos # 0.2 Baso # 0.1 Absolute Nucleated RBC 0.00 Nucleated RBCs 0.0 Sodium Potassium Chloride Carbon Dioxide Anion Gap BUN Creatinine Estimated GFR (MDRD) Glucose Calcium Urine Color YELLOW YELLOW Urine Clarity CLEAR CLOUDY Urine pH 7.5 8.5 H Ur Specific [place] 1.020 1.020 Urine Protein 100 H 100 H Urine Glucose (UA) NEGATIVE NEGATIVE Urine Ketones NEGATIVE NEGATIVE Urine Occult Blood SMALL H MODERATE H Urine Nitrite POSITIVE H NEGATIVE Urine Bilirubin NEGATIVE NEGATIVE Urine Urobilinogen 0.2 (NORMAL) 0.2 (NORMAL) Ur Leukocyte Esterase NEGATIVE MODERATE H Urine RBC 6-10 H 11-25 H Urine WBC 11-25 H >25 H Urine WBC Clumps PRESENT Ur Squamous Epith Cells RARE Squamous NONE SEEN Urine Bacteria Few Many H Ur Microscopic Review INDICATED INDICATED Urine Culture Comments INDICATED INDICATED 01/14/17 13:45 WBC RBC Hgb Hct MCV MCH MCHC RDW Plt Count MPV Neut # Lymph # Porter # Eos # Baso # Absolute Nucleated RBC Nucleated RBCs Sodium 140 Potassium 4.0 Chloride 103 Carbon Dioxide 29 Anion Gap 8.0 BUN 15 Creatinine 1.1 Estimated GFR (MDRD) 81 L Glucose 80 Calcium 9.7 Urine Color Urine Clarity Urine pH Ur Specific [place] Urine Protein Urine Glucose (UA) Urine Ketones Urine Occult Blood Urine Nitrite Urine Bilirubin Urine Urobilinogen Ur Leukocyte Esterase Urine RBC Urine WBC Urine WBC Clumps Ur Squamous Epith Cells Urine Bacteria Ur Microscopic Review Urine Culture Comments PD MEDICAL DECISION MAKING - ED course Complexity details: reviewed old records, reviewed results, re-evaluated patient , considered differential, d/w patient ED course: Patient is a 66-year-old man with history of prostate cancer, BPH, colic Monson catheter. He presents with a complaint of right-sided groin pain and penile pain. On physical examination he had a soft nontender abdomen I really did not see anything significant in the suprapubic groin or groin fold area. His penis is palpated is normal's testes are normal as well without tenderness redness or warmth there is no evidence of any perineal infection hernia or anything abnormal on exam. We changed out his Monson catheter and obtained new urine. This urine is suggestive of infection with moderate pyuria. He was sent for culture and he was treated with ciprofloxacin. Routine labs were done and are unremarkable. The patient still was complaining of pain despite 2 IM doses of Dilaudid here on repeat physical exam I see no evidence of any abnormality in this area he does have a history of some chronic pain issues and is on chronic narcotics. A CT scan of the pelvis was also done with IV contrast and shows no acute abnormalities at this point in time I see nothing overtly abnormal he may have a little urethritis given his urethral and penile pain and therefore will be treated for little additional pain medication short-term he will be placed on a short course of ciprofloxacin. Disposition: To home Clinical impression: 1. Penile pain suspect urethritis 2. Pyuria 3. Indwelling Monson catheter status post change secondary to urinary retention from prostatic cancer Departure - Departure Disposition: Against Medical Advice Clinical Impression: Urethritis, Urinary tract infection Condition: Good Instructions: ED Urethritis Infec Vs Inflam Male Follow-Up: Jairo Blandon MD [Primary Care Provider] - Prescriptions: Ciprofloxacin HCl [Cipro] 500 mg PO BID #10 tablet oxyCODONE/ACET 5/325 [Percocet 5 mg/325 mg] 1 each PO Q4-6H PRN #16 tablet PRN Reason: Pain
[2017-01-14] MEDS ORDERED: HYDROmorphone 1 MG/ML SYRINGE ONE ×2 (13:13→16:35)
[2017-01-14] MEDS ORDERED: LIDOCAINE 2% URO-JET 5 ML SYRINGE UR ONE (13:21)
[2017-01-14 13:39] LABS: BILIRUBIN,URINE NEGATIVE (NEGATIVE); PH,URINE 8.5 PH (5.0-7.5)
[2017-01-14 13:40] LABS: UA w/ MICROSCOPIC CHARGE YES
[2017-01-14 13:53] LABS: BASOPHILS # (AUTO) 0.1 10^3/uL (0.0-0.1); EOSINOPHILS # (AUTO) 0.2 10^3/uL (0.0-0.7); EOSINOPHILS % (AUTO) 2.5 %; HCT - HEMATOCRIT 32.5 % (42.0-52.0); HGB - HEMOGLOBIN 10.4 g/dL (14.0-18.0); LYMPHOCYTES # (AUTO) 1.2 10^3/uL (1.5-3.5); LYMPHOCYTES % (AUTO) 17.1 %; MEAN CORPUSCULAR HEMOGLOBIN 26.2 pg (27.0-31.0); MEAN CORPUSCULAR HGB CONC 32.1 g/dL (32.0-36.0); MEAN CORPUSCULAR VOLUME 81.5 fL (80.0-94.0); MEAN PLATELET VOLUME 7.1 fL (7.4-11.4); MONOCYTES # (AUTO) 0.7 10^3/uL (0.0-1.0); MONOCYTES % (AUTO) 9.3 %; NEUTROPHILS # (AUTO) 5.1 10^3/uL (1.5-6.6); NEUTROPHILS % (AUTO) 70.1 %; RED BLOOD COUNT 3.99 10^6/uL (4.70-6.10); RED CELL DISTRIBUTION WIDTH 17.4 % (12.0-15.0); UNCORRECTED WHITE BLOOD COUNT 7.3 x10^3/uL; WHITE BLOOD COUNT 7.3 x10^3/uL (4.8-10.8)
[2017-01-14 13:56] LABS: UR CULTURE IF IND INDICATED; WBC,URINE >25 /HPF (0-3)
[2017-01-14 14:04] LABS: CALCIUM 9.7 mg/dL (8.5-10.3); CREATININE 1.1 mg/dL (0.6-1.2)
--- NOTE | 2017-01-14 15:36 | CT Preliminary Report ---
Exam: CT Abdomen/Pelvis W/O IMPRESSION: 1. Bilateral renal cysts. No obstructive uropathy. 2. Trace amount of free pelvic fluid. 3. Monson catheter in place. 4. No radiographic explanation for this gentleman's presenting symptoms. [facility] SITE ID: [id number]
--- NOTE | 2017-01-14 15:44 | CT Report ---
EXAM: CT ABDOMEN AND PELVIS EXAM DATE: 01/14/2017 03:21 PM. CLINICAL HISTORY: Right side groin pain. COMPARISONS: 11/01/2016. TECHNIQUE: Routine helical CT imaging was performed through the abdomen and pelvis. IV contrast: None . Enteric contrast: No. Reconstructions: Coronal and sagittal. In accordance with CT protocol optimization, one or more of the following dose reduction techniques w ere utilized for this exam: automated exposure control, adjustment of mA and/or KV based on patient s ize, or use of iterative reconstructive technique. FINDINGS: Lung Bases: Unremarkable. Liver: Normal. No masses. Gallbladder/Bile Ducts: Unremarkable. Spleen: Calcified granulomata. Normal caliber. Pancreas: Normal. Adrenal Glands: Normal. Kidneys: Normal. Several 3.2 cm right and 4.7 cm left and smaller renal cysts. No solid masses, ston es or hydronephrosis. Peritoneal Cavity/Bowel: Normal. No free fluid, free air or adenopathy. No masses or acute inflammato ry process. The appendix is well visualized and normal. Pelvic Organs: Stable very small amount of free pelvic fluid. Interval placement of Monson catheter wi th complete decompression of the urinary bladder. The bladder and visualized pelvic organs are within normal limits. Vasculature: No aneurysms or other significant abnormality. Bones: Old moderate wedging T12. Marked degenerative disk disease L5-S1. Other: None. IMPRESSION: 1. Bilateral renal cysts. No obstructive uropathy. 2. Trace amount of free pelvic fluid. 3. Monson catheter in place. 4. No radiographic explanation for this gentleman's presenting symptoms. [facility] Referring Provider Line: [phone] SITE ID: [id number]
[2017-01-14] MEDS ORDERED: CIPROFLOXACIN 250 MG TABLET PO STA (16:59)
[2017-01-14] MEDS ORDERED: CIPROFLOXACIN 250 MG TABLET PO ONE (17:05)
[2017-01-14 18:32] VITALS: BP 124/62
== END 2017-01-14 18:32 | disposition home or self-care (01) ==
LOC: EDUNIT# → ED 11:39
DX: N34.2 Other urethritis (principal); N48.89 Other specified disorders of penis; Z96.0 Presence of urogenital implants; I10 Essential (primary) hypertension; E78.00 Pure hypercholesterolemia, unspecified; E11.9 Type 2 diabetes mellitus without complications; Z85.46 Personal history of malignant neoplasm of prostate; Z95.1 Presence of aortocoronary bypass graft; Z79.82 Long term (current) use of aspirin; N40.1 Benign prostatic hyperplasia with lower urinary tract symptoms; R33.8 Other retention of urine
CPT/HCPCS: 36415; 51702; 74176; 80048; 81001; 85025; 87077; 87086; 87181; 96372; 99283; 99284; A9270; J1170; 81003

== ENCOUNTER 2017-01-16 12:59 | Outpatient (CLI) | payer MEDICARE, BC | END 2017-01-16 13:00 | disposition critical access hospital (66) | LOC: EMS 12:59 | PROVIDERS: ATTEND Surgery | DX: S01.01XA Laceration without foreign body of scalp, initial encounter (principal); W07.XXXA Fall from chair, initial encounter; Y93.89 Activity, other specified; Y92.10 Unspecified residential institution as the place of occurrence of the external cause | CPT/HCPCS: A0425; A0429 ==

== ENCOUNTER 2017-01-16 13:01 | Emergency (ER) | payer MEDICARE, BC ==
--- NOTE | 2017-01-16 16:09 | CT Preliminary Report ---
Exam: CT Head W/O IMPRESSION: Generalized age-related chronic changes without evidence of acute intracranial abnormalit y when compared with 09/22/2016. [facility] SITE ID: [id number]
--- NOTE | 2017-01-16 16:12 | CT Report ---
EXAM: CT HEAD EXAM DATE: 01/16/2017 02:37 PM. CLINICAL HISTORY: Fall with LOC; scalp lac. COMPARISON: 09/22/2016. TECHNIQUE: Multiaxial CT images were obtained from the foramen magnum to the vertex. IV contrast: Non e. Reformats: Coronal. In accordance with CT protocol optimization, one or more of the following dose reduction techniques w ere utilized for this exam: automated exposure control, adjustment of mA and/or KV based on patient s ize, or use of iterative reconstructive technique. 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 No intraparenchymal hemorrhage. No evidence of mass, mi dline shift, or CT findings of acute infarction. Lau-white differentiation is distinct. Extraaxial Spaces: Enlarged consistent with age-related tissue loss. No acute subdural or epidural co llections identified. Ventricles: The ventricles and cortical sulci are enlarged, question age-related tissue loss versus n ormal pressure hydrocephalus.. Sinuses: Imaged paranasal sinuses, orbits, and mastoids show no significant abnormality. Bones: No evidence of fracture or calvarial defect. Other: Diffuse chronic microangiopathic white matter changes are evident. IMPRESSION: Generalized age-related chronic changes without evidence of acute intracranial abnormalit y when compared with 09/22/2016. [facility] Referring Provider Line: [phone] SITE ID: [id number]
--- NOTE | 2017-01-16 16:16 | CT Preliminary Report ---
Exam: CT Cervical Spine W/O IMPRESSION: Degenerative change cervical spine without superimposed acute fracture, acute malalignmen t or prevertebral soft tissue swelling. [facility] SITE ID: [id number]
--- NOTE | 2017-01-16 16:18 | CT Report ---
EXAM: CT CERVICAL SPINE WITHOUT CONTRAST DATE: 01/16/2017 02:37 PM HISTORY: Fall with LOC; scalp lac. Neck pain COMPARISONS: None. TECHNIQUE: Thin-section axial images were acquired of the cervical spine without contrast. Post-proce ssing: Coronal and sagittal reformats. Other: None. In accordance with CT protocol optimization, one or more of the following dose reduction techniques w ere utilized for this exam: automated exposure control, adjustment of mA and/or KV based on patient s ize, or use of iterative reconstructive technique. FINDINGS: Alignment: Normal. No scoliosis or spondylolisthesis. Bones: No fracture or bone lesion. Degenerative anterior vertebral body spurring most marked C4-C7. Interspace Levels/Facets: C1-C2 through C7-T1: Degenerative disk space narrowing C4-C5, C5-C6 and C6-C7 greater than C3-C4. At multiple levels most marked C5-C6 and C6-C7. Musculature: Normal. No fatty atrophy. Other: The paravertebral and prevertebral soft tissues are normal. IMPRESSION: Degenerative change cervical spine without superimposed acute fracture, acute malalignmen t or prevertebral soft tissue swelling. [facility] Referring Provider Line: [phone] SITE ID: [id number]
--- NOTE | 2017-01-16 16:20 | ED Physician Documentation ---
PD HPI Fall - Stated complaint Stated Complaint: GLF, HEAD LAC, NECK PAIN - Chief complaint Chief Complaint: General - History obtained from History obtained from: Patient - History of Present Illness Mechanism of injury: Slipped Fall distance: Sitting position Where injury occurred: Home Timing - onset: Today (Just prior to arrival.) Injury(ies) location: Head Associated symptoms: LOC (Possibly.) - Additional information Additional information: The patient is a 66-year-old male who arrives via ambulance from [facility] where he fell while transferring from his wheelchair to the sofa. He hit his head and may have had brief loss of consciousness. He denies nausea or vomiting. Review of his medical record reveals a history of prostate cancer with chronic indwelling Monson catheter, and history of frequent falls. He was seen in the emergency department here 2 days ago and started on ciprofloxacin for cystitis. Review of Systems Constitutional: denies: Fever Eyes: denies: Decreased vision Ears: denies: Tinnitus/ringing Nose: denies: Congestion Throat: denies: Sore throat Cardiac: denies: Chest pain / pressure Respiratory: denies: Dyspnea, Cough GI: denies: Abdominal Pain, Nausea, Vomiting : reports: Other (Chronic indwelling Monson catheter.) Skin: reports: Laceration (s) (Occipital scalp wound.) Musculoskeletal: reports: Neck pain. denies: Extremity pain Neurologic: reports: Generalized weakness, Head injury, LOC (possibly.). denies : Focal weakness, Numbness PD PAST MEDICAL HISTORY - Past Medical History Past Medical History: Yes Cardiovascular: High cholesterol, Hypertension Respiratory: Sleep apnea Neuro: None Endocrine/Autoimmune: Type 2 diabetes GI: GERD : Incontinence, Other (Prostate cancer) HEENT: Chronic vision loss Psych: Depression, Anxiety Musculoskeletal: Fibromyalgia Derm: None - Past Surgical History Past Surgical History: Yes Ortho: Carpal Tunnel surgery Cardiovascular: CABG - Present Medications Home Medications: Ambulatory Orders Medication Instructions Recorded Confirmed Aspirin [Tony Chewable Aspirin] 81 mg PO DAILY 02/08/14 01/14/17 Folic Acid 1 mg PO DAILY 02/08/14 01/14/17 Methotrexate Sodium [Methotrexate] 10 mg PO .WEEKLY 02/08/14 01/14/17 Tamsulosin [Flomax] 0.8 mg PO QPM 02/08/14 01/14/17 Atorvastatin Calcium 80 mg PO QPM 06/27/15 01/14/17 Bupropion HCl 100 mg PO BID 06/27/15 01/14/17 Lisinopril 10 mg PO DAILY 06/27/15 01/14/17 Methocarbamol [Robaxin] 500 mg PO Q6HR PRN 06/27/15 01/14/17 Pantoprazole [Protonix] 40 mg PO QDAC 06/27/15 01/14/17 Trospium Chloride [Trospium 60 mg PO DAILY 06/27/15 01/14/17 Chloride ER] Venlafaxine HCl [Venlafaxine HCl 150 mg PO DAILY 06/27/15 01/14/17 ER] Ondansetron HCl [Zofran] 4 mg PO Q6H PRN 11/01/16 01/14/17 Venlafaxine HCl [Venlafaxine HCl 75 mg PO DAILY 11/01/16 01/14/17 ER] Ciprofloxacin [Cipro] 250 mg PO Q12H #30 tablet 11/04/16 01/14/17 amLODIPine [Norvasc] 5 mg PO DAILY #30 tablet 11/04/16 01/14/17 hydrALAZINE [Apresoline] 25 mg PO TID #90 tablet 11/04/16 01/14/17 Ondansetron Odt [Zofran] 4 mg TL Q6H PRN #10 tablet 12/25/16 01/14/17 Ciprofloxacin HCl [Cipro] 500 mg PO BID #10 tablet 01/14/17 oxyCODONE/ACET 5/325 [Percocet 5 1 each PO Q4-6H PRN #16 tablet 01/14/17 mg/325 mg] - Allergies Allergies/Adverse Reactions: Allergies Allergy/AdvReac Type Severity Reaction Status Date / Time amitriptyline HCl * Allergy Intermediate Cramps Verified 12/25/16 17:46 [From Elavil] hydrochlorothiazide Allergy Intermediate Cramps Verified 12/25/16 17:46 - Living Situation Living Arrangement: reports: jail - Social History Does the pt smoke?: No Smoking Status: Never smoker Does the pt drink ETOH?: No Does the pt have substance abuse?: No - Immunizations Immunizations are current?: Yes - POLST Patient has POLST: No PD ED PE NORMAL - Vitals Vital signs reviewed: Yes (normal) - General General: Alert and oriented X 3, Well developed/nourished - HEENT HEENT: PERRL, EOMI, Ears normal, Pharynx benign, Other (There is a 1.5 cm superficial laceration on the occipital scalp. There is no bony step-off palpated, and the wound edges are well apposed.) - Neck Neck: Other (There is mild tenderness to palpation over the mid cervical spine.) - Cardiac Cardiac: RRR, No murmur - Respiratory Respiratory: No respiratory distress, Clear bilaterally - Abdomen Abdomen: Soft, Non tender - Male Male : Other (Monson catheter is in place.) - Back Back: No spinal TTP - Derm Derm: No rash - Extremities Extremities: No deformity, No tenderness to palpate, Normal ROM s pain - Neuro Neuro: Alert and oriented X 3, No motor deficit, No sensory deficit Results - Vitals Vitals: Oxygen O2 Source [] Room air O2 Source Room air - Rads (name of study) Head CT w/o Radiology: Prelim report reviewed, EMP read contemporaneously, See rad report ( Generalized age-related chronic changes without evidence of acute intracranial abnormality when compared with 09/22/2026.) Cervical spine CT Radiology: Prelim report reviewed, EMP read contemporaneously, See rad report ( Degenerative changes cervical spine without superimposed acute fracture, acute malalignment, or prevertebral soft tissue swelling.) PD MEDICAL DECISION MAKING - ED course Complexity details: reviewed old records, reviewed results, re-evaluated patient , considered differential, d/w patient ED course: The patient's presentation is significant for superficial scalp wound caused by falling when transferring from his wheelchair to the sofa. Head CT and cervical spine CT are negative. The scalp wound is superficial with well apposed wound edges. After thorough cleaning of the wound, antibiotic was applied. Clinically the wound will not benefit from suturing or stapling. The patient is being discharged back to the emergency. I discussed with him expected course of healing, symptomatic treatment and outpatient follow-up, as well as potentially worrisome signs or symptoms that should prompt reevaluation in the emergency department. Departure - Departure Disposition: 01 Home, Self Care Clinical Impression: Fall Scalp laceration Qualifiers: Encounter type: initial encounter Qualified Code(s): S01.01XA - Laceration without foreign body of scalp, initial encounter Condition: Stable Instructions: ED Head Injury Closed Follow-Up: Jairo Blandon MD [Provider Admit Priv/Credential] - Comments: You can use Tylenol or ibuprofen if needed for discomfort. It is okay to shower. Apply antibiotic ointment to the scalp wound daily. Follow up with your primary physician or return to the emergency department if you develop increasing headache, persistent vomiting, or otherwise worsening symptoms. Discharge Date/Time: 01/16/17 17:55
[2017-01-16 17:27] VITALS: BP 150/80
== END 2017-01-16 17:55 | disposition home or self-care (01) ==
LOC: EDUNIT# → ED 13:01
DX: S01.01XA Laceration without foreign body of scalp, initial encounter (principal); W05.0XXA Fall from non-moving wheelchair, initial encounter; Z91.81 History of falling; Y92.128 Other place in nursing home as the place of occurrence of the external cause; I10 Essential (primary) hypertension; E78.00 Pure hypercholesterolemia, unspecified; G47.30 Sleep apnea, unspecified; E11.9 Type 2 diabetes mellitus without complications; K21.9 Gastro-esophageal reflux disease without esophagitis; M79.7 Fibromyalgia; Z79.82 Long term (current) use of aspirin; Z85.46 Personal history of malignant neoplasm of prostate
CPT/HCPCS: 70450; 72125; 99283; 99284

== ENCOUNTER 2017-01-18 00:19 | Outpatient (CLI) | payer MEDICARE, BC | END 2017-01-18 00:20 | disposition critical access hospital (66) | LOC: EMS 00:19 | PROVIDERS: ATTEND Surgery | DX: M25.512 Pain in left shoulder (principal); M79.602 Pain in left arm; W19.XXXA Unspecified fall, initial encounter; Y92.129 Unspecified place in nursing home as the place of occurrence of the external cause | CPT/HCPCS: A0425; A0429 ==

== ENCOUNTER 2017-01-18 00:34 | Emergency (ER) | payer MEDICARE, BC ==
--- NOTE | 2017-01-18 02:20 | XRAY Preliminary Report ---
Exam: XR Hip w/Pelvis 2-3V LT IMPRESSION: No acute osseous abnormality demonstrated. [facility] SITE ID: [id number]
--- NOTE | 2017-01-18 02:23 | XRAY Report ---
EXAM: LEFT HIP AND PELVIS RADIOGRAPHY EXAM DATE: 01/18/2017 02:00 AM. HISTORY: Fall, neck, shoulder and hip pain. COMPARISONS: CT abdomen and pelvis 01/14/2017. TECHNIQUE: 1 view of the pelvis and 1 view of the hip. FINDINGS: Bones: No acute displaced fractures or suspicious bony lesion. Joints: No subluxations. Soft Tissues: No significant soft tissue swelling. IMPRESSION: No acute osseous abnormality demonstrated. [facility] Referring Provider Line: [phone] SITE ID: [id number]
--- NOTE | 2017-01-18 02:23 | XRAY Preliminary Report ---
Exam: XR Shoulder 3 View LT IMPRESSION: Fracture of the surgical neck of the left humerus again seen with some healing response. However, no significant bony bridging. No definite acute bony abnormality. [facility] SITE ID: [id number]
--- NOTE | 2017-01-18 02:26 | XRAY Report ---
EXAM: LEFT SHOULDER RADIOGRAPHY EXAM DATE: 01/18/2017 02:01 AM. CLINICAL HISTORY: Fall, neck, shoulder and hip pain. COMPARISON: None. TECHNIQUE: 3 views. FINDINGS: Bones: Old fracture deformity through the surgical neck of the left humerus is noted, with nonunion. Fracture lucency is visible. There is some callus formation. Periosteal reaction is also present. No definite additional acute appearing fracture. Joints: Moderate degenerative change about the left shoulder. Soft tissues: The visualized hemithorax is unremarkable. No soft tissue swelling. IMPRESSION: Fracture of the surgical neck of the left humerus again seen with some healing response. However, no significant bony bridging. No definite acute bony abnormality. [facility] Referring Provider Line: [phone] SITE ID: [id number]
--- NOTE | 2017-01-18 02:36 | CT Preliminary Report ---
Exam: CT Cervical Spine W/O IMPRESSION: Degenerative changes in the cervical spine, stable in appearance since the prior study. N o fracture is identified. [facility] SITE ID: [id number]
--- NOTE | 2017-01-18 02:38 | CT Report ---
EXAM: CT CERVICAL SPINE WITHOUT CONTRAST DATE: 01/18/2017 01:56 AM HISTORY: Neck pain after fall. COMPARISONS: 01/16/2017. TECHNIQUE: Thin-section axial images were acquired of the cervical spine without contrast. Post-proce ssing: Coronal and sagittal reformats. Other: None. In accordance with CT protocol optimization, one or more of the following dose reduction techniques w ere utilized for this exam: automated exposure control, adjustment of mA and/or KV based on patient s ize, or use of iterative reconstructive technique. FINDINGS: Alignment: Normal. No scoliosis or spondylolisthesis. Bones: No fracture or bone lesion. Interspace Levels/Facets: Degenerative changes involve the disk spaces from C2-C3 through C6-C7, inclusive. Central canal narrowing is most pronounced at C4-C5 and C6-C7. Severe right-sided foraminal stenosis at C2-C3. Severe left-sided foraminal stenosis at C3-C4. Severe bilateral foraminal stenosis at C4-C5, right greater than left. Severe bilateral foraminal stenosis at C5-C6 and C6-C7. No change since the prior exam. Musculature: Normal. No fatty atrophy. Other: The paravertebral and prevertebral soft tissues are normal. The lung apices are clear. IMPRESSION: Degenerative changes in the cervical spine, stable in appearance since the prior study. N o fracture is identified. [facility] Referring Provider Line: [phone] SITE ID: [id number]
--- NOTE | 2017-01-18 02:41 | ED Physician Documentation ---
PD HPI Fall - Stated complaint Stated Complaint: HIP/SHOULDER PN/GLF - Chief complaint Chief Complaint: Trauma Ext - History obtained from History obtained from: Family, EMS - History of Present Illness Mechanism of injury: Slipped Fall distance: Sitting position Where injury occurred: Home Timing - onset: Today Injury(ies) location: Neck, Left Uppper Extremity, Left Lower Extremity Quality of pain: Aching Associated symptoms: Neck pain. No: LOC, AMS Contributing factors: No: Anticoagulated, Intoxicated Similar symptoms before: Work up / diagnostics, Treatment Recently seen: Emergency Dept - Additional information Additional information: Patient is a 66 year old male with a history of frequent falls who is presenting to the emergency department for arm pain after falling. Patient was trying to transfer from wheelchair when he fell. patient states that he has left shoulder and hip pain and neck pain. Patient has had many emergency room visits for similar complaints. Review of Systems Constitutional: denies: Fever, Chills Eyes: denies: Decreased vision Ears: denies: Ear pain, Drainage/discharge Nose: denies: Rhinorrhea / runny nose, Epistaxis Throat: denies: Dental pain / toothache Cardiac: denies: Chest pain / pressure GI: denies: Abdominal Pain, Nausea, Vomiting : denies: Dysuria, Frequency Skin: denies: Rash, Abrasion (s), Laceration (s) Musculoskeletal: reports: Neck pain, Extremity pain. denies: Extremity swelling , Joint swelling Neurologic: denies: Focal weakness, Altered mental status, Headache, Head injury , LOC Immunocompromised: denies: Immunocompromised PD PAST MEDICAL HISTORY - Past Medical History Cardiovascular: High cholesterol, Hypertension Respiratory: Sleep apnea Neuro: None Endocrine/Autoimmune: Type 2 diabetes GI: GERD : Incontinence HEENT: Chronic vision loss Psych: Depression, Anxiety Musculoskeletal: Fibromyalgia Derm: None - Past Surgical History Past Surgical History: Yes Ortho: Carpal Tunnel surgery Cardiovascular: CABG - Present Medications Home Medications: Ambulatory Orders Medication Instructions Recorded Confirmed Aspirin [Tony Chewable Aspirin] 81 mg PO DAILY 02/08/14 01/14/17 Folic Acid 1 mg PO DAILY 02/08/14 01/14/17 Methotrexate Sodium [Methotrexate] 10 mg PO .WEEKLY 02/08/14 01/14/17 Tamsulosin [Flomax] 0.8 mg PO QPM 02/08/14 01/14/17 Atorvastatin Calcium 80 mg PO QPM 06/27/15 01/14/17 Bupropion HCl 100 mg PO BID 06/27/15 01/14/17 Lisinopril 10 mg PO DAILY 06/27/15 01/14/17 Methocarbamol [Robaxin] 500 mg PO Q6HR PRN 06/27/15 01/14/17 Pantoprazole [Protonix] 40 mg PO QDAC 06/27/15 01/14/17 Trospium Chloride [Trospium 60 mg PO DAILY 06/27/15 01/14/17 Chloride ER] Venlafaxine HCl [Venlafaxine HCl 150 mg PO DAILY 06/27/15 01/14/17 ER] Ondansetron HCl [Zofran] 4 mg PO Q6H PRN 11/01/16 01/14/17 Venlafaxine HCl [Venlafaxine HCl 75 mg PO DAILY 11/01/16 01/14/17 ER] Ciprofloxacin [Cipro] 250 mg PO Q12H #30 tablet 11/04/16 01/14/17 amLODIPine [Norvasc] 5 mg PO DAILY #30 tablet 11/04/16 01/14/17 hydrALAZINE [Apresoline] 25 mg PO TID #90 tablet 11/04/16 01/14/17 Ondansetron Odt [Zofran] 4 mg TL Q6H PRN #10 tablet 12/25/16 01/14/17 Ciprofloxacin HCl [Cipro] 500 mg PO BID #10 tablet 01/14/17 oxyCODONE/ACET 5/325 [Percocet 5 1 each PO Q4-6H PRN #16 tablet 01/14/17 mg/325 mg] - Allergies Allergies/Adverse Reactions: Allergies Allergy/AdvReac Type Severity Reaction Status Date / Time amitriptyline HCl * Allergy Intermediate Cramps Verified 12/25/16 17:46 [From Elavil] hydrochlorothiazide Allergy Intermediate Cramps Verified 12/25/16 17:46 - Social History Does the pt smoke?: No Smoking Status: Never smoker Does the pt drink ETOH?: No Does the pt have substance abuse?: No - Immunizations Immunizations are current?: Yes - POLST Patient has POLST: No PD ED PE NORMAL - General General: Alert and oriented X 3, No acute distress - HEENT HEENT: Atraumatic, PERRL - Neck Neck: Supple, no meningeal sign - Cardiac Cardiac: RRR - Respiratory Respiratory: No respiratory distress - Abdomen Abdomen: Soft, Non distended - Derm Derm: Normal color, Warm and dry, No rash, Other (no abrasion, no ecchymosis) - Neuro Neuro: Alert and oriented X 3 - Psych Psych: Normal mood PD ED PE EXPANDED - Neck Neck: Bony TTP (C6, C7) - Extremities Extremities: Left shoulder (tenderness to palpation no step offs, full rom), Left hip (mild tenderness to palpation, no deformity ) Results - Vitals Vitals: Vital Signs - 24 hr 01/18/17 01/18/17 00:37 03:13 Temperature 36.1 C L Heart Rate 76 76 Respiratory 16 16 Rate Blood Pressure 146/80 H 121/78 O2 Saturation 98 96 Oxygen O2 Source [Without Activity] Room air O2 Source Room air - Rads (name of study) ct neck Radiology: Final report received (no acute fracture or dislocation) shoulder x-ray Radiology: Final report received (no acute bony abnormality, healing humerus fx) left hip Radiology: Final report received (no acute bony abnormality) PD MEDICAL DECISION MAKING - ED course Complexity details: reviewed old records, reviewed results, re-evaluated patient , considered differential, d/w patient ED course: Patient was seen and examined at bedside. Patient was sent for imaging. when patient returned the results were reviewed. there was no acute fracture or dislocation. patient required no further work up and was stable for discharge with outpatient follow up. Departure - Departure Disposition: 01 Home, Self Care Clinical Impression: Fall Condition: Good Instructions: Falls Risks Prevent Follow-Up: primary,care provider [Other] - As Needed Comments: Your diagnostics today were within normal limits. there is no fracture or dislocation. You will only need to take your pain medications as previously prescribed. You can follow up with your pmd if your symptoms persist. You can return to the emergency department at any time for new, worsening or uncontrollable symptoms.
[2017-01-18 03:14] VITALS: BP 121/78
== END 2017-01-18 04:44 | disposition home or self-care (01) ==
LOC: EDUNIT# → ED 00:34
DX: M25.512 Pain in left shoulder (principal); M54.2 Cervicalgia; M79.605 Pain in left leg; W05.0XXA Fall from non-moving wheelchair, initial encounter; Z91.81 History of falling; I10 Essential (primary) hypertension; E11.9 Type 2 diabetes mellitus without complications; Z79.82 Long term (current) use of aspirin; M79.7 Fibromyalgia; Z95.1 Presence of aortocoronary bypass graft; E78.00 Pure hypercholesterolemia, unspecified
CPT/HCPCS: 72125; 99283